=== PATIENT | male | born 2000 | race Two or more races ===

== ENCOUNTER 2022-02-21 18:49 | Emergency (ER) | payer OTHER ==
[~2022-02-21] VITALS: Ht 175.3 cm; Wt 101.7 kg
[2022-02-21 21:49] VITALS: BP 125/92
[2022-02-21] MEDS ORDERED: TETANUS-DIPTH-ACEL PERTUSSIS 0.5ML SYR Tdap IM ONE (22:30)
== END 2022-02-21 22:56 | disposition home or self-care (01) ==
LOC: ER 18:49
DX: S60.512A Abrasion of left hand, initial encounter (principal); W26.8XXA Contact with other sharp object(s), not elsewhere classified, initial encounter; Y93.89 Activity, other specified; Y92.89 Other specified places as the place of occurrence of the external cause; Y99.8 Other external cause status
CPT/HCPCS: 90471; 90715